=== PATIENT | male | born 1950 ===

== ENCOUNTER 2019-02-15 07:51 | Day surgery (SDC) | payer OTHER ==
[2019-02-15 08:00] VITALS: BMI 32.3
[2019-02-15] MEDS ORDERED: Lidocaine PF 2% (5 ml) Inj (For Cardiac Arrhy) ONE (13:52)
[2019-02-15] MEDS ORDERED: Nitroglycerin 50mg in D5W 50 MG/250 ML BOTTLE IV ONE (13:53)
[2019-02-15] MEDS ORDERED: Verapamil 2 ML ONE (13:53)
[2019-02-15] MEDS ORDERED: Iodixanol 320 MG/ML 200 ML BOTTLE IV ONE (13:53)
[2019-02-15] MEDS ORDERED: Iohexol 350mgl/ml 50 ML ONE (13:53)
[2019-02-15] MEDS ORDERED: Iodixanol 320 MG/ML 100 ML BOTTLE IV ONE (13:53)
[2019-02-15] MEDS ORDERED: Heparin 2,000 ML IV ONE (13:53)
[2019-02-15] MEDS ORDERED: Midazolam 2 MG/2 ML VIAL ONE ×3 (15:45→17:52)
[2019-02-15] MEDS ORDERED: Eptifibatide 20 mg/10mL Inj IVP ONE (16:06)
[2019-02-15] MEDS ORDERED: Flumazenil 0.1 mg/ml Inj (5ml) IVP ONE (16:09)
[2019-02-15] MEDS ORDERED: Naloxone 0.4 mg/ml Inj (Adult) ONE (16:11)
[2019-02-15] MEDS ORDERED: Bacitracin 500 Units/gm Oint Foilpak UD TOP ONE (16:36)
[2019-02-15] MEDS ORDERED: Sodium Chloride 0.9% 1,000 ML IV SCH (16:45)
[2019-02-15 18:01] VITALS: TEMP 97.8
[2019-02-15] MEDS ORDERED: Bacitracin 500 Units/gm Oint Foilpak UD ONE (20:59)
--- NOTE | 2019-02-15 20:59 | CARDCATH ---
PROCEDURE DATE: 02/15/2019 INDICATION: Wilber is a pleasant 69-year-old male who presented to [facility] with complaints of chest pain, typical angina symptoms, underwent an exercise nuclear stress test, which showed evidence of reversible ischemia and therefore was brought to the cath lab technologist for further evaluation and treatment. PROCEDURE PERFORMED: Left heart catheterization with selective left and right coronary angiogram, left ventriculogram, PTCA stenting of left anterior descending artery, deployment of 3.5 x 22 Igor drug-eluting stent, lesion reduction from 90% to 0% JOSHUA-3 flow. A 6-[place] left radial arterial access, wristband for hemostasis. ANGIOGRAPHIC FINDINGS: Left main is a large-sized vessel that bifurcates into left anterior descending and left circumflex coronary artery. Left main is free of any obstructive disease. Left anterior descending artery has a [id number] high grade 90% stenosis at the first septal skein spooler, gives off two small-sized diagonal branches, mid and distal LAD os free of any obstructive disease. Left circumflex runs in the AV groove, has mild nonobstructive 40% stenosis, gives off obtuse marginal branch, which has moderate 50% stenosis. RCA is a large-sized vessel, it has a proximal bend, 55 to 60% stenosis, gives off right PDA and PLV branches. Left ventricular end-diastolic pressure was 15 mmHg. TECHNIQUES OF INTERVENTION: After reviewing the above angiographic findings, it was decided to proceed with the proximal LAD high-grade lesion. A JL 3.5 guiding catheter was used to engage the left coronary system. A [place] wire was used to cross the cross the lesion. The lesion was predilated with a 2.5 x 15 balloon and subsequently stented with a 3.5 x 22 [place] drug-eluting stent. Final angiogram showed lesion reduction down to 0% and JOSHUA 3 flow. IMPRESSION: Successful revascularization of the proximal left anterior descending high grade stenosis with deployment of 3.5 x 22 Igor drug-eluting stent. RECOMMENDATIONS: Continue the patient on dual antiplatelet therapy, guideline-directed therapy for CAD. The patient can be transferred back to [facility] in [address] Franklin for letting me participate in the care of your patient. Skyler Burns MD cc: Omer Franklin MD
[2019-02-15 22:14] VITALS: BP 154/85; PULSE 81; RESP 20
== END 2019-02-15 22:23 | disposition short-term general hospital (02) ==
LOC: CATH 07:51 → 2RSO 16:51 → CATH 22:23
PROVIDERS: ATTEND Internal Medicine Interventional Cardiology
DX: I25.119 Atherosclerotic heart disease of native coronary artery with unspecified angina pectoris (principal); I10 Essential (primary) hypertension; E11.9 Type 2 diabetes mellitus without complications; Z79.84 Long term (current) use of oral hypoglycemic drugs
CPT/HCPCS: 85175; 93454; 99152; C1725; C1769; C1874; C1887; C1894; C9600; J0360; J1327; J1644 ×2; J2250; J2310; J3010; J7030; Q9966; Q9967 ×2